=== PATIENT | female | born 1940 | race Caucasian/White ===

== ENCOUNTER → 2023-05-01 12:25 | Outpatient (CLI) | payer MEDICARE, SELFPAY ==
--- NOTE | 2023-05-01 | DI.RAD.S_ITS ---
PROCEDURE: XR FOOT RT MIN 3V INDICATIONS: FOOT PAIN TECHNIQUE: 3 views of the foot were acquired. COMPARISON: None. FINDINGS: Bones: No fractures or dislocations. Moderate to severe 1st MTP joint osteoarthritic changes are seen with complete loss of joint space and prominent dorsal marginal osteophyte formation concerning for hallux limitus. No suspicious bony lesions. Soft tissues: No tibiotalar joint effusion. Achilles tendon appears normal. 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 No fracture or dislocation. Dictated by: Miguel Hernandez M.D. on 05/01/2023 at 16:06 Approved by: Miguel Hernandez M.D. on 05/01/2023 at 16:08
--- NOTE | 2023-05-01 | DI.RAD.S_ITS ---
PROCEDURE: XR FOOT LT MIN 3V INDICATIONS: FOOT PAIN TECHNIQUE: 3 views of the foot were acquired. COMPARISON: None. FINDINGS: Bones: No fractures or dislocations. There is lateral deviation at 2nd through 4th MTP joints and mild hammertoe deformity involving 2nd toe with weight bearing. Osteoarthritic changes are noted throughout left foot more notably at 1st MTP joint. No suspicious bony lesions. Soft tissues: No tibiotalar joint effusion. Achilles tendon appears normal. IMPRESSION: No left foot fracture or dislocation. Left foot osteoarthritis as above. Slight lateral deviation at 2nd through 4th MTP joints and mild hammertoe deformity involving 2nd toe. Dictated by: Miguel Hernandez M.D. on 05/01/2023 at 16:08 Approved by: Miguel Hernandez M.D. on 05/01/2023 at 16:12
== END ==
PROVIDERS: Referring Provider Podiatrist Foot & Ankle Surgery; Visit Provider Podiatrist Foot & Ankle Surgery
DX: M19.071 Primary osteoarthritis, right ankle and foot (principal); M21.619 Bunion of unspecified foot; M20.40 Other hammer toe(s) (acquired), unspecified foot; M77.40 Metatarsalgia, unspecified foot
CPT/HCPCS: 73630